=== PATIENT | male | born 1990 | race Caucasian/White ===

== ENCOUNTER 2020-11-20 21:14 | Emergency (ER) | payer OTHER ==
[~2020-11-20] VITALS: Ht 165.1 cm; Wt 60.3 kg
[2020-11-20] MEDS ORDERED: DICLOFENAC SODI75 MG PO (22:05)
== END 2020-11-20 22:38 | disposition home or self-care (01) ==
LOC: ER 21:14
DX: S13.4XXA Sprain of ligaments of cervical spine, initial encounter (principal); V49.9XXA Car occupant (driver) (passenger) injured in unspecified traffic accident, initial encounter; Y93.89 Activity, other specified; Y92.488 Other paved roadways as the place of occurrence of the external cause; Y99.8 Other external cause status

== ENCOUNTER 2020-11-21 12:51 | Emergency (ER) | payer OTHER ==
[~2020-11-21] VITALS: Ht 175.3 cm; Wt 63.5 kg
[~2020-11-21 12:51] MED LIST: DICLOFENAC SODI75 MG PO
== END 2020-11-21 17:00 | disposition home or self-care (01) ==
LOC: ER
DX: S10.83XA Contusion of other specified part of neck, initial encounter (principal); S20.213A Contusion of bilateral front wall of thorax, initial encounter; S30.1XXA Contusion of abdominal wall, initial encounter; W18.09XA Striking against other object with subsequent fall, initial encounter; Y93.89 Activity, other specified; Y92.89 Other specified places as the place of occurrence of the external cause; Y99.8 Other external cause status